=== PATIENT | female | born 1975 | race Caucasian/White ===

== ENCOUNTER 2017-05-21 03:29 | Emergency (ER) | payer OTHER ==
[~2017-05-21] VITALS: Ht 167.6 cm; Wt 73.6 kg
[2017-05-21 03:33] VITALS: Ht 167.6 cm; Wt 73.6 kg
[2017-05-21] MEDS ORDERED: OXYCODONE HCL IR 5 MG TAB (IMMEDIATE RELEASE) PO STA ×2 (03:43→07:46)
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
[2017-05-21] MEDS ORDERED: DIAZEPAM 5MG TAB PO ONE ×2 (03:45→05:30)
[2017-05-21] MEDS ORDERED: CLON1TAB3 PO (04:03)
[2017-05-21] MEDS ORDERED: PARO1TAB27 PO (04:03)
[2017-05-21] MEDS ORDERED: BUPR100T8 PO (04:03)
[2017-05-21] MEDS ORDERED: OXYC1TAB3 PO (05:21)
[2017-05-21] MEDS ORDERED: DIAZ-165 PO (05:21)
[2017-05-21] MEDS ORDERED: OXYCODONE IR HOME PACK PO ONE (05:30)
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
[2017-05-21 12:32] VITALS: BP 110/72; PULSE 72; TEMP 36.7; O2SAT 96
== END 2017-05-21 11:30 | disposition home or self-care (01) ==
LOC: C.EDB 03:32
DX: S13.4XXA Sprain of ligaments of cervical spine, initial encounter (principal); V40.6XXA Car passenger injured in collision with pedestrian or animal in traffic accident, initial encounter; F41.9 Anxiety disorder, unspecified; F32.9 Major depressive disorder, single episode, unspecified